=== PATIENT | female | born 1990 | race African-American/Black ===

== ENCOUNTER 2016-12-01 10:00 | Emergency (ER) | payer MEDICAID ==
[~2016-12-01 10:00] MED LIST: ALBU8I INH; BENZ20T TOPICAL; IBUP600 PO; TUCKSPAD TOPICAL
--- NOTE | 2016-12-01 11:05 | PD ---
HPI Chief Complaint "tired of being " Date Seen: Dec 01, 2016 Time Seen: 11:00 Travel History International Travel<30 Days: No Contact w/Intl Traveler<30Days: No Known Affected Area: No History of Present Illness HPI Pt is a 26 y/o with IUP at 39 wks by stated RICHIE from ultrasound. Pt has no care this , but has been in seen in ED a few times during the . Pt reports some BH contractions. She denies vb, lof. + FM Weeks Gestation: 39 Para: 4 : 5 History Past Medical History Narrative Medical anemia, asthma Obstetric History Obstetric History FTSVD x 3 x 1 (first )--pt states around "8 months" Past Surgical History Surgical History: No Previous Surgery Family History Family History: nc Social History Alcohol Use: No Tobacco Use: No Substance Abuse: No Allergies-Medications (Allergen,Severity, Reaction): Coded Allergies: No Known Allergies (Unverified , 06/10/14) Home Meds Active Scripts Witch Minna/Glycerin (A.e.r. Witch Minna) 40 Applic/40 Pad Pad, 1 APPLIC TOPICAL QID Y for HEMORRHOIDS, #1 UNITS Prov:Jo-Ann Mcgill MD, R3 11/11/15 Benzocaine (Americaine) 20 % Aer, 1 SPRAY TOPICAL Q4H Y for PERINEUM DISCOMFORT , #1 BOTTLE Prov:Jo-Ann Mcgill MD, R3 11/11/15 Ibuprofen (Motrin 600 Mg Tab) 600 Mg Tab, 600 MG PO Q6H Y for CRAMPING, #30 TAB Prov:Stephanie Blakely MD R1 11/11/15 Albuterol Sulfate 8 GM Inhaler (Ventolin Hfa) 8 Gm Aero, 2 PUFF INH Q4 for Broncospasm, #1 BOX * SHAKE WELL BEFORE USE * Prov:Gerber Tapia MD 11/09/15 Narrative Medication pnv, INHALER Review of Systems General / Constitutional: Weight Gain Eyes: No: Diploplia, Blurred Vision, Visual changes, Pain, Photophobia, Other HENT: No: Headaches, Vertigo, Dental Difficulties, Lightheadedness, Other Cardiovascular: No: Irregular Rhythm, Chest Pain or Discomfort, Palpitations, Tachycardia, Syncope, Varicosities, Edema, Cyanosis, Other Respiratory: No: Cough, Short of Breath, Wheezing, Other Gastrointestinal: No: Nausea, Vomiting, Diarrhea, Abdominal Pain, Hematemesis, Hematochezia, Constipation, Changes in Bowel Habits, Indigestion, Loss of Appetite, Other Genitourinary: No: Urgency, Frequency, Dysuria, Nocturia, Hematuria, Decreased Urinary Output, Oliguria, Hesitancy, Dribbling, Incontinence, Pelvic Pain, Dyspareunia, Discharge, Menorrhagia, Vaginal Bleeding, Other Musculoskeletal: No: Limited ROM, Weakness, Cramping, Edema, Pain, Other Skin: No Rash, No Itching, No Dryness, No Lumps, No Change in Pigmentation, No Change in Nails, No Alopecia, No Lesions, No Breast Lumps, No Breast Tenderness , No Breast Swelling, No Other Neurologic: No: Weakness, Dizziness, Syncope, Focal Abnormalities, Coordination Problem, Headache, Slurred Speech, Seizures, Other Psychiatric: No: Anxiety, Depression, Suicidal Ideations, Disorder of Thought, Mood Disorder, Substance Abuse, Homicidal Ideation, Other Endocrine: No: Heat Intolerance, Cold Intolerance, Polydipsia, Polyuria, Other Hematologic/Lymphatic: No Easy Bruising, No Lymph Node Enlargement, No Other Physical Exam AFVSS (see tracevue) Narrative GENERAL: Well-nourished, well-developed patient. SKIN: Warm and dry. HEAD: Normocephalic and atraumatic. EYES: No scleral icterus. No injection or drainage. ENT: No nasal drainage noted. Mucous membranes pink. Airway patent. NECK: Supple, trachea midline. No JVD. CARDIOVASCULAR: Regular rate and rhythm without murmurs, gallops, or rubs. RESPIRATORY: Breath sounds equal bilaterally. No accessory muscle use. BREASTS: Bilateral exam showed no masses , no retractions, no nipple discharge. ABDOMEN/GI: Abdomen soft, non-tender, bowel sounds present, no rebound, no guarding Gravid GENITOURINARY: External Genitalia: intact and normal in appearance BUS glands: [wnl] Cervix: posterior Dilatation: 2-3 Effacement: 50 Station: -3 Presentation: [facility] Membranes: intact Uterine Contractions: -neg FHT's: Category: 1 Baseline: 140 Reactive: yes Variability: mod Decels: no EXTREMITIES: No cyanosis or edema. BACK: Nontender without obvious deformity. No CVA tenderness. NEUROLOGICAL: Awake and alert. Motor and sensory grossly within normal limits. Five out of 5 muscle strength in all muscle groups. Normal speech. Data Data Vital Signs Reviewed: Yes Orders Orders Vital Signs (Adult) .ON ADMISSION (12/01/16 11:01) ^ Labor Status (12/01/16 11:01) ^ Non Stress Test (12/01/16 11:01) Group B Beta Strep Scrn (Gbs) (12/01/16 11:01) Ob/Psych Drug Screen, Urine (12/01/16 11:01) MDM Medical Record Reviewed: Yes Narrative Course / MDM 26 y/o with IUP at 39 wks no s/sx labor cat 1 tracing labor precautions Diagnosis Diagnosis: Primary Impression: 39 weeks gestation of Additional Impression: Insufficient care in third trimester Disposition: 01 DISCHARGE HOME Condition: Stable Patient Instructions: Movement (ED) Departure Forms: Tests/Procedures Hector Resendez MD Dec 01, 2016 11:05
[2016-12-04 09:16] LABS: OBMETHADONE UR NEG (NEG); PHENCYCLIDINE URINE NEG (NEG)
[2016-12-04 09:17] LABS: BATH SALTS (MDPV) UR NEG (NEG); ECSTASY (MDMA) UR NEG (NEG); GABAPENTIN UR NEG (NEG); HEROIN (6-ACETYLMORPHINE) UR NEG (NEG); HYDROMORPHONE U NEG (NEG); K2 SPICE UR NEG (NEG)
[2016-12-10] MEDS ORDERED: FERR325T8 PO (07:44)
[2016-12-10] MEDS ORDERED: DOCO200C (07:44)
[2016-12-10] MEDS ORDERED: SE-NCHW CHEW (07:45)
== END 2016-12-01 11:11 | disposition home or self-care (01) ==
LOC: HOBED 10:00
DX: O47.1 False labor at or after 37 completed weeks of gestation (principal); O09.33 Supervision of pregnancy with insufficient antenatal care, third trimester; Z3A.39 39 weeks gestation of pregnancy
CPT/HCPCS: 80307; 87081; 99283; G0481

== ENCOUNTER 2016-12-14 09:40 | Inpatient (IN) | payer MEDICAID ==
[~2016-12-14] VITALS: Ht 157.5 cm; Wt 85.0 kg
[2016-12-14] VITALS (76 sets, daily range): BP systolic 92–146; BP diastolic 62–92; PULSE 67–109; RESP 16–18; TEMP 97.8–98.8; O2SAT 99–100
[~2016-12-14 09:40] MED LIST changes: -ALBU8I INH; -BENZ20T TOPICAL; +FERR325T8 PO; -IBUP600 PO; +SE-NCHW CHEW; -TUCKSPAD TOPICAL
[2016-12-14] MEDS ORDERED: LACTATED RINGER'S 1000 ML INJ 1,000 ML IV PRN (10:31)
--- NOTE | 2016-12-14 10:40 | PD ---
HPI Chief Complaint heart tones not heard at office Date Seen: Dec 14, 2016 Time Seen: 10:21 Travel History International Travel<30 Days: No Contact w/Intl Traveler<30Days: No History of Present Illness HPI Ms. Villanueva is a 26 y/o -[place] female at 41/2 weeks via 3rd trimester ultrasound who presents after being sent over from clinic after unable to assess heart tones. Endorses good movement. Denies vaginal bleeding, loss of fluids. Endorses occasional [place]-guerra contractions. She follows with Dr. Crenshaw in [facility]. Had limited care before moving to [facility] and [facility]. Otherwise, denies any complaints/ concerns. No headache, changes in vision, dysuria, leg pain/swelling. Weeks Gestation: 41 Para: 4 : 5 History Past Medical History Narrative Medical Asthma-last used inhaler 2 months ago Anemia Obstetric History Obstetric History x4 at term Past Surgical History Surgical History: No Previous Surgery Family History Family History: Negative Social History Alcohol Use: No Tobacco Use: No Substance Abuse: No Allergies-Medications (Allergen,Severity, Reaction): Coded Allergies: No Known Allergies (Unverified , 12/14/16) Home Meds Reported Medications Vit W/ Ferrous Fumara Chew (Se-Medardo 19 29-1 mg Chew) 1 Chew, 1 TAB CHEW DAILY for Nutritional Supplement, EA 0 Refills 12/10/16 Ferrous Sulfate (Ferrous Sulfate) 325 Mg (65 Mg Iron) Tablet, 325 MG PO BIDPC for Nutritional Supplement, #60 TAB 0 Refills 12/10/16 Discontinued Reported Medications Docosahexaenoic Acid ( Dha) 200 Mg Cap 12/10/16 Discontinued Scripts Witch Minna/Glycerin (A.e.r. Witch Minan) 40 Applic/40 Pad Pad, 1 APPLIC TOPICAL QID Y for HEMORRHOIDS, #1 UNITS Prov:Jo-Ann Mcgill MD, R3 11/11/15 Benzocaine (Americaine) 20 % Aer, 1 SPRAY TOPICAL Q4H Y for PERINEUM DISCOMFORT , #1 BOTTLE Prov:Jo-Ann Mcgill MD, R3 11/11/15 Ibuprofen (Motrin 600 Mg Tab) 600 Mg Tab, 600 MG PO Q6H Y for CRAMPING, #30 TAB Prov:Stephanie Blakely MD R1 11/11/15 Albuterol Sulfate 8 GM Inhaler (Ventolin Hfa) 8 Gm Aero, 2 PUFF INH Q4 for Broncospasm, #1 BOX * SHAKE WELL BEFORE USE * Prov:Gerber Tapia MD 11/09/15 Review of Systems General / Constitutional: No: Fever, Chills, Other Eyes: No: Diploplia, Blurred Vision, Visual changes, Pain, Photophobia HENT: No: Headaches, Vertigo, Lightheadedness Cardiovascular: No: Irregular Rhythm, Chest Pain or Discomfort, Palpitations, Tachycardia, Syncope, Varicosities, Edema, Cyanosis Respiratory: No: Cough, Short of Breath, Other Gastrointestinal: No: Nausea, Vomiting, Diarrhea Genitourinary: No: Decreased Urinary Output, Oliguria, Incontinence, Pelvic Pain, Discharge, Menorrhagia, Vaginal Bleeding Musculoskeletal: No: Limited ROM, Weakness, Cramping, Edema, Pain Skin: No Rash, No Itching, No Dryness, No Lumps, No Change in Pigmentation, No Change in Nails, No Alopecia, No Lesions Neurologic: No: Weakness, Dizziness, Syncope, Focal Abnormalities, Coordination Problem, Headache, Slurred Speech, Seizures Psychiatric: No: Depression, Suicidal Ideations, Homicidal Ideation Endocrine: No: Heat Intolerance, Cold Intolerance, Polydipsia, Polyuria, Other Physical Exam Narrative GENERAL: Well-nourished, well-developed patient. SKIN: Warm and dry. HEAD: Normocephalic and atraumatic. EYES: No scleral icterus. No injection or drainage. ENT: No nasal drainage noted. Mucous membranes pink. Airway patent. NECK: Supple, trachea midline. No JVD. CARDIOVASCULAR: Regular rate and rhythm without murmurs, gallops, or rubs. RESPIRATORY: Breath sounds equal bilaterally. No accessory muscle use. BREASTS: Bilateral exam showed no masses , no retractions, no nipple discharge. ABDOMEN/GI: Abdomen soft, non-tender, bowel sounds present, no rebound, no guarding Gravid to 41 weeks size GENITOURINARY: External Genitalia: intact and normal in appearance Dilatation: 5 Effacement: 70 Station: -2 Presentation: vertex Membranes: intact Uterine Contractions: occasional FHT's: Category: 1 Baseline: 130 Reactive: yes Variability: moderate Decels: none EXTREMITIES: No cyanosis or edema. BACK: Nontender without obvious deformity. No CVA tenderness. NEUROLOGICAL: Awake and alert. Motor and sensory grossly within normal limits. Five out of 5 muscle strength in all muscle groups. Normal speech. Data Data Vital Signs Reviewed: Yes Group B Strep: Positive MDM Medical Record Reviewed: Yes Interpretation(s) 26 y/o at 41/2 weeks presents from clinic for NST evaluation Cervical exam: /-2 Category 1 FHT, initially non-reactive. Reactive after stimulation GBS positive Limited care -Admit for labor & delivery -PCN for GBS+ -GC/CH with previous positive unknown treatment - labs -Pitocin augmentation -Continuous FHT -Expectant management -Plan for vaginal delivery Diagnosis Diagnosis: Primary Impression: Qualified Codes: Z3A.41 - 41 weeks gestation of Navid Gama MD, R2 Dec 14, 2016 10:40
--- NOTE | 2016-12-14 10:44 | HHI.HP ---
History & Physical H&P HPI Chief Complaint heart tones not heard at office Date Seen: Dec 14, 2016 Time Seen: 10:21 Travel History International Travel<30 Days: No Contact w/Intl Traveler<30Days: No History of Present Illness HPI Ms. Villanueva is a 26 y/o -[place] female at 41/2 weeks via 3rd trimester ultrasound who presents after being sent over from clinic after unable to assess heart tones. Endorses good movement. Denies vaginal bleeding, loss of fluids. Endorses occasional [place]guerra contractions. She follows with Dr. Crenshaw in [facility]. Had limited care before moving to [facility] and [facility]. Otherwise, denies any complaints/ concerns. No headache, changes in vision, dysuria, leg pain/swelling. Weeks Gestation: 41 Para: 4 : 5 History (Limited) History Past Medical History Narrative Medical Asthma-last used inhaler 2 months ago Anemia Obstetric History Obstetric History x4 at term Past Surgical History Surgical History: No Previous Surgery Family History Family History: Negative Social History Alcohol Use: No Tobacco Use: No Substance Abuse: No Allergies-Medications Allergies-Medications (Allergen,Severity, Reaction): Coded Allergies: No Known Allergies (Unverified , 12/14/16) Home Meds Reported Medications Vit W/ Ferrous Fumara Chew (Se-Medardo 19 29-1 mg Chew) 1 Chew, 1 TAB CHEW DAILY for Nutritional Supplement, EA 0 Refills 12/10/16 Ferrous Sulfate (Ferrous Sulfate) 325 Mg (65 Mg Iron) Tablet, 325 MG PO BIDPC for Nutritional Supplement, #60 TAB 0 Refills 12/10/16 Discontinued Reported Medications Docosahexaenoic Acid ( Dha) 200 Mg Cap 12/10/16 Discontinued Scripts Witch Minna/Glycerin (A.e.r. Witch Minna) 40 Applic/40 Pad Pad, 1 APPLIC TOPICAL QID Y for HEMORRHOIDS, #1 UNITS Prov:Jo-Ann Mcgill MD, R3 11/11/15 Benzocaine (Americaine) 20 % Aer, 1 SPRAY TOPICAL Q4H Y for PERINEUM DISCOMFORT , #1 BOTTLE Prov:Jo-Ann Mcgill MD, R3 11/11/15 Ibuprofen (Motrin 600 Mg Tab) 600 Mg Tab, 600 MG PO Q6H Y for CRAMPING, #30 TAB Prov:Stephanie Blakely MD R1 11/11/15 Albuterol Sulfate 8 GM Inhaler (Ventolin Hfa) 8 Gm Aero, 2 PUFF INH Q4 for Broncospasm, #1 BOX * SHAKE WELL BEFORE USE * Prov:Gerber Tapia MD 11/09/15 ROS Review of Systems General / Constitutional: No: Fever, Chills, Other Eyes: No: Diploplia, Blurred Vision, Visual changes, Pain, Photophobia HENT: No: Headaches, Vertigo, Lightheadedness Cardiovascular: No: Irregular Rhythm, Chest Pain or Discomfort, Palpitations, Tachycardia, Syncope, Varicosities, Edema, Cyanosis Respiratory: No: Cough, Short of Breath, Other Gastrointestinal: No: Nausea, Vomiting, Diarrhea Genitourinary: No: Decreased Urinary Output, Oliguria, Incontinence, Pelvic Pain, Discharge, Menorrhagia, Vaginal Bleeding Musculoskeletal: No: Limited ROM, Weakness, Cramping, Edema, Pain Skin: No Rash, No Itching, No Dryness, No Lumps, No Change in Pigmentation, No Change in Nails, No Alopecia, No Lesions Neurologic: No: Weakness, Dizziness, Syncope, Focal Abnormalities, Coordination Problem, Headache, Slurred Speech, Seizures Psychiatric: No: Depression, Suicidal Ideations, Homicidal Ideation Endocrine: No: Heat Intolerance, Cold Intolerance, Polydipsia, Polyuria, Other Physical Exam Physical Exam Narrative GENERAL: Well-nourished, well-developed patient. SKIN: Warm and dry. HEAD: Normocephalic and atraumatic. EYES: No scleral icterus. No injection or drainage. ENT: No nasal drainage noted. Mucous membranes pink. Airway patent. NECK: Supple, trachea midline. No JVD. CARDIOVASCULAR: Regular rate and rhythm without murmurs, gallops, or rubs. RESPIRATORY: Breath sounds equal bilaterally. No accessory muscle use. BREASTS: Bilateral exam showed no masses , no retractions, no nipple discharge. ABDOMEN/GI: Abdomen soft, non-tender, bowel sounds present, no rebound, no guarding Gravid to 41 weeks size GENITOURINARY: External Genitalia: intact and normal in appearance Dilatation: 5 Effacement: 70 Station: -2 Presentation: vertex Membranes: intact Uterine Contractions: occasional FHT's: Category: 1 Baseline: 130 Reactive: yes Variability: moderate Decels: none EXTREMITIES: No cyanosis or edema. BACK: Nontender without obvious deformity. No CVA tenderness. NEUROLOGICAL: Awake and alert. Motor and sensory grossly within normal limits. Five out of 5 muscle strength in all muscle groups. Normal speech. Data Data Data Vital Signs Reviewed: Yes Group B Strep: Positive MDM MDM Medical Record Reviewed: Yes Interpretation(s) 26 y/o at 41/2 weeks presents from clinic for NST evaluation Cervical exam: /-2 Category 1 FHT, initially non-reactive. Reactive after stimulation GBS positive Limited care -Admit for labor & delivery -PCN for GBS+ -GC/CH with previous positive unknown treatment - labs -Pitocin augmentation -Continuous FHT -Expectant management -Plan for vaginal delivery Diagnosis Diagnosis: Primary Impression: Qualified Codes: Z3A.41 - 41 weeks gestation of Navid Gama MD, R2 Dec 14, 2016 10:44
[2016-12-14] MEDS ORDERED: PENICILLIN G POTASSIUM INJ 5,000,000 UNITS in SODIUM CHLORIDE 0.9% INJ 100 ML IV ONE (10:45)
[2016-12-14] MEDS ORDERED: OXYTOCIN 30 UNITS-500ML PREMIX 500 ML IV ONE (10:45)
[2016-12-14] MEDS ORDERED: LIDOCAINE HCL 1% 50 ML VIAL INFIL PRN (10:45)
[2016-12-14] MEDS ORDERED: ONDANSETRON HCL 4 MG/2 ML VIAL IV PUSH PRN (10:45)
[2016-12-14] MEDS ORDERED: MINERAL OIL 10 ML VIAL TOPICAL PRN (10:45)
[2016-12-14] MEDS ORDERED: OXYTOCIN 30 UNITS-500ML PREMIX 500 ML IV SCH ×2 (10:45→22:45)
[2016-12-14] MEDS ORDERED: CITRIC ACID-SODIUM CITRATE LIQ 30 ML UDC PO SCH (10:45)
[2016-12-14] MEDS ORDERED: LIDOCAINE HCL 1% 50 ML VIAL I-DERMAL PRN (10:45)
[2016-12-14] MEDS ORDERED: SODIUM CHLORID 0.9% 500 ML INJ 500 ML IV PRN (10:45)
[2016-12-14] MEDS ORDERED: SODIUM CHLOR 0.9% 1000 ML INJ 1,000 ML IV PRN (10:51)
[2016-12-14] MEDS: LACTATED RINGER'S 1000 ML INJ 1,000 ML IV SCH ×3 (12:28→16:34)
--- NOTE | 2016-12-14 12:36 | PD.LABORPN ---
Subjective Subjective Patient is family practice and now 41 weeks and 5 cm for augment labor Objective Objective Pelvic Exam: Cervix: [-] Dilatation: 5 Effacement: [-] Station: [-] Presentation: vtx Membranes: [intact Uterine Contractions: [-] FHT's: Category: 1 Baseline: [-] Reactive: [-] Variability: [-] Decels: [-] Weeks Gestation: 41 Gest Age Assessed Date: Dec 14, 2016 Gest Age Assessed Time: 12:30 Pt started active labor?: No Medical induction of labor?: No Artificial rupture of membrane: No Assessment/Plan Problem List: (1) 41 weeks gestation of ICD Codes: Z3A.41 - 41 weeks gestation of Ashu Mays MD Dec 14, 2016 12:36
[2016-12-14 12:56] LABS: AUTOMATED NEUTROPHIL # 3.8 TH/MM3 (1.8-7.7); BASOPHIL % 0.3 % (0.0-2.0); EOSINOPHIL # 0.1 TH/MM3 (0-0.4); EOSINOPHIL % 2.5 % (0.0-4.0); HEMATOCRIT 33.8 % (35.0-46.0); HEMO FLAGS DIFF FINAL; LYMPH % 19.8 % (9.0-44.0); LYMPHOCYTE # 1.1 TH/MM3 (1.0-4.8); MEAN CELL VOLUME 83.2 FL (80.0-100.0); MEAN CORPUSCULAR HEMOGLOBIN 27.8 PG (27.0-34.0); MEAN CORPUSCULAR HGB CONC 33.4 % (32.0-36.0); MONO % 7.9 % (0.0-8.0); NEUT % 69.5 % (16.0-70.0); PLATELET COUNT 216 TH/MM3 (150-450); RED BLOOD COUNT 4.06 MIL/MM3 (4.00-5.30); RED CELL DISTRIBUTION WIDTH 13.1 % (11.6-17.2); WHITE BLOOD COUNT 5.5 TH/MM3 (4.0-11.0)
[2016-12-14 13:08] LABS: BACTERIA, URINE RARE /hpf; BLOOD, URINE NEG (NEG); COMMENT (UR) CULTURE INDICATED; CULTURE IF INDICATED CULTURE INDICATED; GLUCOSE,URINE NEG (NEG); KETONE, URINE NEG (NEG); MUCUS URINE FEW /lpf (OCC); NITRITE,URINE NEG (NEG); PH, URINE 6.5 (5.0-8.5); SQUAMOUS EPITHELIAL CELL URINE 4 /hpf (0-5); URINE COLOR YELLOW (YELLW/STRAW)
[2016-12-14] MEDS ORDERED: fentaNYL 2MCG-BUPIV 0.125% INJ 100 ML ONE (14:41)
[2016-12-14] MEDS ORDERED: MEASLES, MUMPS, RUBELLA VACCINE 0.5 ML VIAL SQ ONE (16:00)
[2016-12-14] MEDS ORDERED: DIPHTH/TETANUS/ACEL PERTUSSIS (BOOSTER) 0.5 ML VIAL/PFS IM ONE (16:00)
[2016-12-14] MEDS: PENICILLIN G POTASSIUM INJ 2,500,000 UNITS in SODIUM CHLORIDE 0.9% INJ 100 ML IV SCH ×2 (16:33→21:50)
[2016-12-14 16:45] LABS: CHLAMYDIA PCR NOT DETECTED (NOT DETECT); NEISSERIA PCR DETECTED (NOT DETECT)
[2016-12-14] MEDS ORDERED: ePHEDrine/NS 25 MG/5 ML SYR ONE (16:48)
[2016-12-14] MEDS ORDERED: AZITHROMYCIN PWD FOR SUSP 1 GM PACKET PO ONE (17:30)
--- NOTE | 2016-12-14 17:30 | PD.LABORPN ---
Subjective Subjective Patient resting comfortably with epidural in place. Objective Vital Signs Vital Signs Date Time Temp Pulse Resp B/P (MAP) Pulse Ox O2 Delivery O2 Flow Rate FiO2 12/14/16 17:15 70 12/14/16 17:10 78 12/14/16 17:00 124/75 (91) 12/14/16 17:00 83 12/14/16 17:00 18 12/14/16 16:56 73 133/73 (93) 12/14/16 16:55 78 12/14/16 16:50 81 136/73 (94) 12/14/16 16:45 87 12/14/16 16:45 106/69 (81) 12/14/16 16:40 76 123/75 (91) 12/14/16 16:35 79 12/14/16 16:30 83 127/82 (97) 12/14/16 16:25 99 12/14/16 16:25 140/83 (102) 12/14/16 16:20 91 12/14/16 16:20 136/82 (100) 12/14/16 16:15 132/86 (101) 12/14/16 16:15 82 12/14/16 16:10 86 134/88 (103) 12/14/16 16:05 85 146/87 (106) 12/14/16 15:55 100 12/14/16 15:55 98 12/14/16 15:50 100 12/14/16 15:50 89 12/14/16 15:49 88 135/92 (106) 12/14/16 15:45 100 12/14/16 15:45 90 12/14/16 15:40 85 12/14/16 15:33 68 129/76 (93) 12/14/16 15:32 98.5 18 12/14/16 14:25 98.8 12/14/16 14:24 75 127/82 (97) 12/14/16 14:24 16 12/14/16 14:12 92 144/77 (99) Objective Pelvic Exam: Cervix: midposition Dilatation: 6 Effacement: 100 Station: -2 Presentation: vertex Membranes: AROM, light meconium Uterine Contractions: q2-3min FHT's: Category: I Baseline: 125 Reactive: + Variability: moderate Decels: none Weeks Gestation: 41 Gest Age Assessed Date: Dec 14, 2016 Gest Age Assessed Time: 12:30 Pt started active labor?: No Medical induction of labor?: No Artificial rupture of membrane: No Assessment/Plan Problem List: (1) 41 weeks gestation of ICD Codes: Z3A.41 - 41 weeks gestation of Assessment and Plan 26 year old at 41-3/7 weeks gestation. 1. IUP- Category I tracing, reassuring. 2. IOL- Non-reactive NST in OB ED, IOL with Pitocin 04-09-29, AROM with light mec fluid. 3. GBS positive on 10/30- penicillin per protocol 4. Poor/late care due to poor compliance. Hx of positive GC in October. Positive for GC today. Currently on IV penicillin, will also give 1g Azithromycin PO once. Obtain UDS. 5. Social- Aunt to become Guardian of for temporary custody. Case management consulted for assistance with social aspects of care. 6. Anticipate vaginal delivery. Betty Weber Dr., MD, R3 Dec 14, 2016 17:30
[2016-12-14] MEDS ORDERED: NO SYSTEM NARCOTICS PRN (18:15)
[2016-12-14] MEDS ORDERED: DO NOT ADMINISTER ANTICOAGULANTS PRN (18:15)
[2016-12-14] MEDS ORDERED: fentaNYL 2MCG-BUPIV 0.125% 100 ML EPIDURAL SCH (18:15)
[2016-12-14] MEDS ORDERED: ePHEDrine/NS 25 MG/5 ML SYR IV PUSH PRN (18:15)
--- NOTE | 2016-12-14 20:47 | PD.LABORPN ---
Subjective Subjective Patient resting in bed comfortably. Starting to feel some pressure. Objective Vital Signs Vital Signs Date Time Temp Pulse Resp B/P (MAP) Pulse Ox O2 Delivery O2 Flow Rate FiO2 12/14/16 20:13 18 12/14/16 20:10 85 12/14/16 20:05 78 12/14/16 20:00 78 113/80 (91) 12/14/16 19:30 74 115/72 (86) 12/14/16 19:29 97.8 12/14/16 19:28 18 12/14/16 19:01 89 92/73 (79) 12/14/16 19:00 86 100 12/14/16 18:55 100 12/14/16 18:55 96 12/14/16 18:50 89 12/14/16 18:50 100 12/14/16 18:45 100 12/14/16 18:45 18 12/14/16 18:40 100 12/14/16 18:35 100 12/14/16 18:30 99 12/14/16 18:30 67 12/14/16 18:25 83 12/14/16 18:25 100 12/14/16 18:20 100 12/14/16 18:20 74 12/14/16 18:15 100 12/14/16 18:10 84 12/14/16 18:10 100 12/14/16 18:05 100 12/14/16 18:05 71 12/14/16 18:00 71 12/14/16 18:00 98.3 12/14/16 18:00 100 12/14/16 18:00 125/66 (85) 12/14/16 17:57 18 12/14/16 17:55 100 12/14/16 17:55 74 12/14/16 17:50 100 12/14/16 17:50 69 12/14/16 17:45 100 12/14/16 17:45 81 12/14/16 17:40 100 12/14/16 17:35 100 12/14/16 17:35 82 12/14/16 17:30 121/71 (88) 12/14/16 17:30 84 12/14/16 17:30 100 12/14/16 17:25 77 12/14/16 17:25 100 10/9/17 17:20 70 12/14/16 17:20 100 12/14/16 17:15 127/68 (87) 12/14/16 17:15 70 12/14/16 17:15 100 12/14/16 17:10 100 12/14/16 17:10 78 12/14/16 17:05 74 12/14/16 17:05 100 12/14/16 17:00 124/75 (91) 12/14/16 17:00 83 12/14/16 17:00 100 12/14/16 17:00 18 12/14/16 16:56 73 133/73 (93) 12/14/16 16:55 100 12/14/16 16:55 78 12/14/16 16:50 81 136/73 (94) 12/14/16 16:50 100 12/14/16 16:45 87 12/14/16 16:45 100 12/14/16 16:45 106/69 (81) 12/14/16 16:40 100 12/14/16 16:40 76 123/75 (91) 12/14/16 16:35 79 12/14/16 16:35 100 12/14/16 16:30 83 127/82 (97) 12/14/16 16:30 100 12/14/16 16:25 100 12/14/16 16:25 99 12/14/16 16:25 140/83 (102) 12/14/16 16:20 91 12/14/16 16:20 100 12/14/16 16:20 136/82 (100) 12/14/16 16:15 132/86 (101) 12/14/16 16:15 100 12/14/16 16:15 82 12/14/16 16:10 100 12/14/16 16:10 86 134/88 (103) 12/14/16 16:05 85 146/87 (106) 12/14/16 16:05 100 12/14/16 15:55 100 12/14/16 15:55 98 12/14/16 15:50 100 12/14/16 15:50 89 12/14/16 15:49 88 135/92 (106) 12/14/16 15:45 100 12/14/16 15:45 90 12/14/16 15:40 85 12/14/16 15:33 68 129/76 (93) 12/14/16 15:32 98.5 18 12/14/16 14:25 98.8 12/14/16 14:24 75 127/82 (97) 12/14/16 14:24 16 12/14/16 14:12 92 144/77 (99) Objective Pelvic Exam: Cervix: midposition Dilatation: 9 Effacement: 100 Station: -1 Presentation: vertex Membranes: AROM, light mec Uterine Contractions: q2-3min FHT's: Category: I Baseline: 135 Reactive: + Variability: moderate Decels: none Weeks Gestation: 41 Gest Age Assessed Date: Dec 14, 2016 Gest Age Assessed Time: 12:30 Pt started active labor?: Yes Active labor start date: Dec 14, 2016 Active labor start time: 14:15 Medical induction of labor?: Yes Medical induction start date: Dec 14, 2016 Medical induction start time: 14:15 Artificial rupture of membrane: Yes Artificial ROM date: Dec 14, 2016 Artifical ROM time: 14:15 Assessment/Plan Problem List: (1) 41 weeks gestation of ICD Codes: Z3A.41 - 41 weeks gestation of Assessment and Plan 26 year old at 41-3/7 weeks gestation. 1. IUP- Category I tracing, reassuring. 2. IOL- Non-reactive NST in OB ED, IOL with Pitocin 2-2-30, AROM with light mec fluid. 3. GBS positive on 10/30- penicillin per protocol 4. Poor/late care due to poor compliance. Hx of positive GC in October. Positive for GC today. Currently on IV penicillin, s/p 1g Azithromycin PO once. UDS negative so far. 5. Social- Aunt to become Guardian of for temporary custody. Case management consulted for assistance with social aspects of care. 6. Anticipate vaginal delivery. dw Betty Barba MD, R3 Dec 14, 2016 20:47
--- NOTE | 2016-12-14 22:40 | PD.OB.DELI ---
Weeks gestation: 41 Gest age assessed date: Dec 14, 2016 Gest age assessed time: 12:30 Pt started active labor?: Yes Active labor start date: Dec 14, 2016 Active labor start time: 14:15 Medical induction of labor?: Yes Medical induction start date: Dec 14, 2016 Medical induction start time: 14:15 Artificial rupture of membrane: Yes Artificial ROM date: Dec 14, 2016 Artifical ROM time: 14:15 Anesthesia: Epidural Episiotomy: None Vaginal Delivery: Normal Presentation: Occiput anterior Nuchal Cord: None Delayed cord clamping (45 sec): Yes : Male Delivery date: Dec 14, 2016 Delivery time: 22:16 One Minute : 8 Five Minute : 9 Weight: 3770g Placenta: Spontaneous delivery, Intact, 3 vessel cord Laceration: No lacerations Estimated blood loss: 250cc Additional Information Supervised by Dr. Vieira. Betty Crenshaw MD, R3 Dec 14, 2016 22:40
[2016-12-14] MEDS ORDERED: SODIUM CHLORIDE 0.9% FLUSH 10 ML FLUSH IV FLUSH PRN (22:45)
[2016-12-14] MEDS ORDERED: oxyCODONE/ACETAMINOPHEN 5 MG/325 MG TAB PO PRN ×2 (22:45)
[2016-12-14] MEDS ORDERED: ZOLPIDEM TARTRATE 5 MG TAB PO PRN (22:45)
[2016-12-14] MEDS ORDERED: ONDANSETRON ODT 4 MG TAB PO PRN (22:45)
[2016-12-14] MEDS ORDERED: ALUMINUM/MAGNESIUM/SIMETH 30 ML CUP PO PRN (22:45)
[2016-12-14] MEDS ORDERED: ACETAMINOPHEN 325 MG TAB PO PRN (22:45)
[2016-12-14] MEDS ORDERED: WITCH HAZEL 50%/GLYCERIN 12.5% 40 PAD JAR TOPICAL PRN (22:45)
[2016-12-14] MEDS ORDERED: BENZOCAINE 20% TOPICAL SPRAY 60 ML CAN TOPICAL PRN (22:45)
[2016-12-14] MEDS ORDERED: DOCUSATE SODIUM 50 MG/SENNA 8.6 MG TAB PO PRN (22:45)
--- NOTE | 2016-12-15 00:50 | HHI.PR ---
Addendum to Inpatient Note Addendum Reason: Additional Documentation Additional Information Nurse paged at [phone] to ask for HepB and Rubella labs on mother. This was ordered. AMRIK Richards. Nohemi Rivera MD R2 Dec 15, 2016 00:50
[2016-12-15 01:30] VITALS: BP 121/71; PULSE 90; RESP 18; TEMP 98.1
[2016-12-15 06:45] LABS: RUBELLA IGG ANTIBODY 7.1 IU/mL (10.0-500.0); RUBELLA STATUS INDETERMINATE (IMMUNE)
--- NOTE | 2016-12-15 07:29 | HHI.OB ---
Subjective Remarks PPD day # 1. No acute issues overnight, vitals are stable, patient remains afebrile. Decreasing lochia and pain. Patient is ambulating without difficulty and voiding independently. She is feeding the baby via formula. She denies any nausea or vomiting and has a good appetite. Positive flatus/bowel movement. She denies any calf pain, chest pain, or shortness of breath. Objective Vitals/I&O Vital Signs Date Time Temp Pulse Resp B/P (MAP) Pulse Ox O2 Delivery O2 Flow Rate FiO2 12/15/16 01:30 98.1 18 12/15/16 01:30 90 121/71 (88) 12/14/16 23:30 18 12/14/16 23:15 18 12/14/16 23:00 80 132/76 (94) 12/14/16 22:55 18 12/14/16 22:39 18 12/14/16 22:30 96 115/74 (88) 12/14/16 22:30 18 12/14/16 22:10 109 12/14/16 22:01 102 120/78 (92) 12/14/16 22:00 97 12/14/16 21:48 98.6 12/14/16 21:45 18 12/14/16 21:35 95 12/14/16 21:31 96 100/62 (75) 12/14/16 21:30 93 12/14/16 21:05 88 12/14/16 21:00 84 12/14/16 20:45 18 12/14/16 20:40 86 142/90 (107) 12/14/16 20:40 91 12/14/16 20:35 88 12/14/16 20:30 86 12/14/16 20:13 18 12/14/16 20:10 85 12/14/16 20:05 78 12/14/16 20:00 78 113/80 (91) 12/14/16 19:30 74 115/72 (86) 12/14/16 19:29 97.8 12/14/16 19:28 18 12/14/16 19:01 89 92/73 (79) 12/14/16 19:00 86 100 12/14/16 18:55 100 12/14/16 18:55 96 12/14/16 18:50 89 10/9/17 18:50 100 17 18:45 100 17 18:45 18 17 18:40 100 17 18:35 100 17 18:30 99 17 18:30 67 17 18:25 83 17 18:25 100 17 18:20 100 17 18:20 74 17 18:15 100 17 18:10 84 17 18:10 100 17 18:05 100 17 18:05 71 17 18:00 71 12/14/16 18:00 98.3 17 18:00 100 17 18:00 125/66 (85) 12/14/16 17:57 18 12/14/16 17:55 100 17 17:55 74 12/14/16 17:50 100 12/14/16 17:50 69 12/14/16 17:45 100 17 17:45 81 12/14/16 17:40 100 17 17:35 100 17 17:35 82 12/14/16 17:30 121/71 (88) 12/14/16 17:30 84 12/14/16 17:30 100 17 17:25 77 12/14/16 17:25 100 12/14/16 17:20 70 12/14/16 17:20 100 12/14/16 17:15 127/68 (87) 12/14/16 17:15 70 17 17:15 100 12/14/16 17:10 100 17 17:10 78 17 17:05 74 12/14/16 17:05 100 17 17:00 124/75 (91) 12/14/16 17:00 83 17 17:00 100 17 17:00 18 12/14/16 16:56 73 133/73 (93) 12/14/16 16:55 100 17 16:55 78 17 16:50 81 136/73 (94) 12/14/16 16:50 100 12/14/16 16:45 87 12/14/16 16:45 100 12/14/16 16:45 106/69 (81) 12/14/16 16:40 100 12/14/16 16:40 76 123/75 (91) 12/14/16 16:35 79 12/14/16 16:35 100 12/14/16 16:30 83 127/82 (97) 12/14/16 16:30 100 12/14/16 16:25 100 12/14/16 16:25 99 12/14/16 16:25 140/83 (102) 12/14/16 16:20 91 12/14/16 16:20 100 12/14/16 16:20 136/82 (100) 12/14/16 16:15 132/86 (101) 12/14/16 16:15 100 12/14/16 16:15 82 12/14/16 16:10 100 12/14/16 16:10 86 134/88 (103) 12/14/16 16:05 85 146/87 (106) 12/14/16 16:05 100 12/14/16 15:55 100 12/14/16 15:55 98 12/14/16 15:50 100 12/14/16 15:50 89 12/14/16 15:49 88 135/92 (106) 12/14/16 15:45 100 12/14/16 15:45 90 12/14/16 15:40 85 12/14/16 15:33 68 129/76 (93) 12/14/16 15:32 98.5 18 12/14/16 14:25 98.8 12/14/16 14:24 75 127/82 (97) 12/14/16 14:24 16 12/14/16 14:12 92 144/77 (99) Objective Remarks GENERAL: Well-nourished, well-developed patient. CARDIOVASCULAR: Regular rate and rhythm without murmurs, gallops, or rubs. RESPIRATORY: Breath sounds equal bilaterally. No accessory muscle use. ABDOMEN/GI: Abdomen soft, non-tender. Fundus: Firm, non-tender at umbilicus. GENITOURINARY: Light to moderate bleeding. EXTREMITIES: No cyanosis or edema, non-tender, without signs of DVT. Medications and IVs Current Medications Medications (Trade) Dose Ordered Sig/Aura Route Start Time Stop Time Status Last Admin Lactated Ringer's 1,000 ml @ 125 mls/hr Q8H IV 12/14/16 10:31 12/14/16 16:34 Lactated Ringer's 1,000 ml @ 3,000 mls/hr Q20M PRN IV 12/14/16 10:31 Sodium Chloride 500 ml @ 1,000 mls/hr ONCE PRN IV 12/14/16 10:45 12/16/16 10:44 Sodium Chloride 1,000 ml @ 100 mls/hr Q10H PRN IV 12/14/16 10:51 (Xylocaine 1% Inj (50 ml)) 0.1 ml UNSCH X1 PRN I-DERMAL 12/14/16 10:45 12/17/16 10:44 (Bicitra Liq) 30 ml OVERLOCK SLEEVE SETTER PO 12/14/16 10:45 12/18/16 10:44 (fentaNYL INJ) 50 mcg Q1H PRN IV PUSH 12/14/16 10:45 (fentaNYL INJ) 100 mcg Q1H PRN IV PUSH 12/14/16 10:45 (Xylocaine 1% Inj (50 ml)) 10 ml UNSCH X1 PRN INFIL 12/14/16 10:45 12/16/16 10:44 (Muri-Lube Oil) 10 ml UNSCH PRN TOPICAL 12/14/16 10:45 Oxytocin 500 ml @ 0 mls/hr TITRATE IV 12/14/16 10:45 Miscellaneous Information No systemic narcotics to be given except... UNSCH PRN .XX 12/14/16 18:15 12/15/16 18:14 Miscellaneous Information DO NOT ADMINISTER ANY ANTICOAGUL... UNSCH PRN .XX 12/14/16 18:15 12/15/16 18:14 Fentanyl/ Bupivacaine HCl 100 ml @ 0 mls/hr TITRATE EPIDURAL 12/14/16 18:15 (ePHEDrine/NS 25 MG/5 ML SYR) 10 mg UNSCH PRN IV PUSH 12/14/16 18:15 12/15/16 18:14 12/14/16 18:54 (Flu (Quadrivalent) Vaccine Inj) 0.5 ml ONCE ONCE IM 12/15/16 10:00 12/15/16 10:01 (NS Flush) 2 ml BID IV FLUSH 12/15/16 09:00 (NS Flush) 2 ml UNSCH PRN IV FLUSH 12/14/16 22:45 (Tylenol) 650 mg Q4H PRN PO 12/14/16 22:45 (Motrin) 600 mg Q6H PRN PO 12/14/16 22:45 (Percocet 5-325 Mg) 1 tab Q4H PRN PO 12/14/16 22:45 (Percocet 5-325 Mg) 2 tab Q4H PRN PO 12/14/16 22:45 (Americaine 20% Top Spr) 1 spray Q4H PRN TOPICAL 12/14/16 22:45 (Tucks Pads) 1 applic QID PRN TOPICAL 12/14/16 22:45 (Amanda-Colace) 2 tab Q12H PRN PO 12/14/16 22:45 (Ambien) 5 mg HS PRN PO 12/14/16 22:45 (Mag-Al Plus Susp Liq) 15 ml Q8H PRN PO 12/14/16 22:45 (Zofran Odt) 4 mg Q6H PRN PO 12/14/16 22:45 Assessment/Plan Problem List: (1) Vaginal delivery ICD Codes: O80 - Encounter for full-term uncomplicated delivery Status: Acute Assessment and Plan 26 y/o female who is PPD # 1 s/p . -Continue routine care. -Percocet and Motrin PRN pain. -Encouraged OOB. Advised pelvic rest for 6 wks. -Re: ctrl, she would like Depo-Provera. - Anticipate discharge home tomorrow. delroy Crensahw,Betty Sepulveda MD, R3 Dec 15, 2016 07:29
[2016-12-15] MEDS ORDERED: medroxyPROGESTERone ACETATE SUSP 150 MG/ML SYRINGE IM ONE (07:45)
[2016-12-15] MEDS ORDERED: SODIUM CHLORIDE 0.9% FLUSH 10 ML FLUSH IV FLUSH SCH (09:00)
[2016-12-15] MEDS ORDERED: INFLUENZA VIRUS VACCINE (QUADRIVALENT) 0.5 ML SYR IM ONE (10:00)
[2016-12-15] MEDS: IBUPROFEN 600 MG TAB PO PRN ×2 (11:26→21:04)
[2016-12-15 14:20] VITALS: BP 107/63; TEMP 98.4
[2016-12-15 20:44] VITALS: BP 128/80; PULSE 74; RESP 18; O2SAT 100
--- NOTE | 2016-12-16 07:49 | HHI.OB ---
Subjective Remarks PPD day # 2. No acute issues overnight, vitals are stable, patient remains afebrile. Decreasing lochia and pain. Patient is ambulating without difficulty and voiding independently. She is feeding the baby via formula. She denies any nausea or vomiting and has a good appetite. Positive flatus/bowel movement. She denies any calf pain, chest pain, or shortness of breath. Objective Vitals/I&O Vital Signs Date Time Temp Pulse Resp B/P (MAP) Pulse Ox O2 Delivery O2 Flow Rate FiO2 12/15/16 20:44 128/80 (96) 12/15/16 20:44 74 18 100 12/15/16 14:20 107/63 (78) 12/15/16 14:20 98.4 Objective Remarks GENERAL: Well-nourished, well-developed patient. CARDIOVASCULAR: Regular rate and rhythm without murmurs, gallops, or rubs. RESPIRATORY: Breath sounds equal bilaterally. No accessory muscle use. ABDOMEN/GI: Abdomen soft, non-tender. Fundus: Firm, non-tender at umbilicus. GENITOURINARY: Light to moderate bleeding. EXTREMITIES: No cyanosis or edema, non-tender, without signs of DVT. Medications and IVs Current Medications Medications (Trade) Dose Ordered Sig/Arua Route Start Time Stop Time Status Last Admin Lactated Ringer's 1,000 ml @ 125 mls/hr Q8H IV 12/14/16 10:31 12/14/16 16:34 Lactated Ringer's 1,000 ml @ 3,000 mls/hr Q20M PRN IV 12/14/16 10:31 Sodium Chloride 500 ml @ 1,000 mls/hr ONCE PRN IV 12/14/16 10:45 12/16/16 10:44 Sodium Chloride 1,000 ml @ 100 mls/hr Q10H PRN IV 12/14/16 10:51 (Xylocaine 1% Inj (50 ml)) 0.1 ml UNSCH X1 PRN I-DERMAL 12/14/16 10:45 12/17/16 10:44 (Bicitra Liq) 30 ml FORENSIC SPECIALIST PO 12/14/16 10:45 12/18/16 10:44 (fentaNYL INJ) 50 mcg Q1H PRN IV PUSH 12/14/16 10:45 (fentaNYL INJ) 100 mcg Q1H PRN IV PUSH 12/14/16 10:45 (Xylocaine 1% Inj (50 ml)) 10 ml UNSCH X1 PRN INFIL 12/14/16 10:45 12/16/16 10:44 (Muri-Lube Oil) 10 ml UNSCH PRN TOPICAL 12/14/16 10:45 Oxytocin 500 ml @ 0 mls/hr TITRATE IV 12/14/16 10:45 Fentanyl/ Bupivacaine HCl 100 ml @ 0 mls/hr TITRATE EPIDURAL 12/14/16 18:15 (NS Flush) 2 ml BID IV FLUSH 12/15/16 09:00 (NS Flush) 2 ml UNSCH PRN IV FLUSH 12/14/16 22:45 (Tylenol) 650 mg Q4H PRN PO 12/14/16 22:45 (Motrin) 600 mg Q6H PRN PO 12/14/16 22:45 12/15/16 21:04 (Percocet 5-325 Mg) 1 tab Q4H PRN PO 12/14/16 22:45 (Percocet 5-325 Mg) 2 tab Q4H PRN PO 12/14/16 22:45 (Americaine 20% Top Spr) 1 spray Q4H PRN TOPICAL 12/14/16 22:45 (Tucks Pads) 1 applic QID PRN TOPICAL 12/14/16 22:45 (Amanda-Colace) 2 tab Q12H PRN PO 12/14/16 22:45 12/15/16 21:05 (Ambien) 5 mg HS PRN PO 12/14/16 22:45 (Mag-Al Plus Susp Liq) 15 ml Q8H PRN PO 12/14/16 22:45 (Zofran Odt) 4 mg Q6H PRN PO 12/14/16 22:45 Assessment/Plan Problem List: (1) Vaginal delivery ICD Codes: O80 - Encounter for full-term uncomplicated delivery Status: Acute Assessment and Plan 26 y/o female who is PPD # 2 s/p . - Continue routine care. - Percocet and Motrin PRN pain. - Will give Rocephin 250mg IM once to cover for gonorrhea. - Encouraged OOB. Advised pelvic rest for 6 wks. - Re: ctrl, she would like Depo-Provera. - Anticipate discharge home today. dw Dr. Duarte Crenshaw,Betty Sepulveda MD, R3 Dec 16, 2016 07:49
[2016-12-16] MEDS ORDERED: PERI8.6T PO (07:50)
[2016-12-16] MEDS ORDERED: IBUP-232 PO (07:50)
--- NOTE | 2016-12-16 07:50 | HHI.DCPOC ---
Discharge Care Plan Diagnosis: (1) Vaginal delivery Report Symptoms to Your Doctor -Temperature above 100.5 degrees -Redness, of incision or excessive or foul smelling drainage -Unusual pain or calf pain -Increased vaginal bleeding -Painful or difficulty urinating -Feelings of extreme sadness or anxiety after 2 weeks Goals to Promote Your Health * To prevent worsening of your condition and complications * To maintain your health at the optimal level Directions to Meet Your Goals Take your medications as prescribed Follow your dietary instruction Follow activity as directed Ensure plenty of rest for recovery Drink fluids for hydration Keep your appointments as scheduled Take your immunizations and boosters as scheduled If your symptoms worsen call your PCP, if no PCP go to Urgent Care Center or Emergency Room Smoking is Dangerous to Your Health. Avoid second hand smoke Call the 24-hour crisis hotline for domestic abuse at Betty Crenshaw MD, R3 Dec 16, 2016 07:50
[2016-12-16] MEDS ORDERED: cefTRIAXone 250 MG VIAL IM ONE (08:15)
[2016-12-16 08:38] VITALS: PULSE 77; RESP 18; TEMP 98.3
[2016-12-16] MEDS ORDERED: medroxyPROGESTERone ACETATE SUSP 150 MG/ML SYRINGE IM ONE (09:00)
[2016-12-16] MEDS ORDERED: LIDOCAINE HCL 1% PF 2 ML VIAL ONE (11:39)
[2016-12-16] MEDS: IBUPROFEN 600 MG TAB PO PRN (13:05)
[2016-12-16] MEDS ORDERED: MEASLES, MUMPS, RUBELLA VACCINE 0.5 ML VIAL SQ ONE (13:30)
[2016-12-17 11:12] LABS: BATH SALTS (MDPV) UR NEG (NEG); ECSTASY (MDMA) UR NEG (NEG); GABAPENTIN UR NEG (NEG); HEROIN (6-ACETYLMORPHINE) UR NEG (NEG); HYDROMORPHONE U NEG (NEG); K2 SPICE UR NEG (NEG); OBMETHADONE UR NEG (NEG); PHENCYCLIDINE URINE NEG (NEG)
== END 2016-12-16 13:39 | disposition home or self-care (01) | DRG 775 ==
LOC: HOBED 09:40 → H2EB 10:43 → H2EA 10:58 → H1EA 23:54
PROVIDERS: ADMIT Obstetrics & Gynecology; ATTEND Obstetrics & Gynecology
PROC: 10E0XZZ Delivery of Products of Conception, External Approach (ICD-10-PCS; principal; 2016-12-14)
PROC: 00HU33Z Insertion of Infusion Device into Spinal Canal, Percutaneous Approach (ICD-10-PCS; 2016-12-14)
PROC: 3E0R3BZ Introduction of Anesthetic Agent into Spinal Canal, Percutaneous Approach (ICD-10-PCS; 2016-12-14)
DX: O76 Abnormality in fetal heart rate and rhythm complicating labor and delivery (principal); D64.9 Anemia, unspecified; J45.909 Unspecified asthma, uncomplicated; Z37.0 Single live birth; O99.52 Diseases of the respiratory system complicating childbirth; O48.0 Post-term pregnancy; Z3A.41 41 weeks gestation of pregnancy; O99.02 Anemia complicating childbirth
CPT/HCPCS: 59025; 80307; 81001; 85025; 86703; 86762; 86900; 86901; 87086; 87340; 87491; 87591; 90686; 90707; 90715; G0481; J0696; J1050; J2540; J2590; J7120; Q2038